=== PATIENT | female | born 1960 | race African-American/Black ===

== ENCOUNTER → 2016-06-20 | Outpatient (CLI) | payer OTHER ==
[2016-06-20 14:07] LABS: ABSOLUTE EOSINOPHILS # (AUTO) 0.1 10^3/uL (0.0-0.6); ABSOLUTE LYMPHOCYTES (AUTO) 2.3 10^3/uL (0.5-4.7); ABSOLUTE MONOCYTES (AUTO) 0.5 10^3/uL (0.1-1.4); ABSOLUTE NEUT (AUTO) 2.4 10^3/uL (1.7-8.2); BASOPHILS % (AUTO) 0.8 % (0-2); EOSINOPHILS % (AUTO) 2.1 % (0-6); HEMATOCRIT 39.9 % (36.0-47.0); HEMOGLOBIN 12.4 g/dL (12.0-15.5); HGB HCT DIFFERENCE -2.7; LYMPHOCYTES % (AUTO) 43.1 % (13-45); MEAN CORPUSCULAR HGB CONC 31.1 g/dL (32.0-36.0); MEAN CORPUSCULAR VOLUME 93 fl (80-97); MONOCYTES % (AUTO) 9.4 % (3-13); RED BLOOD COUNT 4.28 10^6/uL (3.72-5.28); RED CELL DISTRIBUTION WIDTH 13.9 % (11.5-14.0); SEGMENTED NEUTROPHILS % (AUTO) 44.6 % (42-78); WHITE BLOOD COUNT 5.3 10^3/uL (4.0-10.5)
[2016-06-20 14:47] LABS: DIRECT LDL 120 mg/dL (<100); Direct HDL 46 mg/dL (>40); TRIGLYCERIDES 124 mg/dL (<150)
[2016-06-22 12:18] LABS: ALANINE AMINOTRANSFERASE 52 U/L (9-52); ALBUMIN 4.4 g/dL (3.5-5.0); ALKALINE PHOSPHATASE 94 U/L (38-126); ANION GAP 10 (5-19); ASPARTATE AMINO TRANSFERASE 28 U/L (14-36); BILIRUBIN,TOTAL 0.7 mg/dL (0.2-1.3); BLOOD UREA NITROGEN 23 mg/dL (7-20); CALCIUM 10.2 mg/dL (8.4-10.2); CARBON DIOXIDE 32 mmol/L (22-30); CHLORIDE 102 mmol/L (98-107); CREATININE RESULT 0.95 mg/dL (0.52-1.25); GLUCOSE 91 mg/dL (75-110); POTASSIUM 4.2 mmol/L (3.6-5.0); SODIUM 143.6 mmol/L (137-145); TOTAL PROTEIN 7.8 g/dL (6.3-8.2)
== END ==
LOC: OD 12:19
DX: R73.03 Prediabetes (principal); I10 Essential (primary) hypertension
CPT/HCPCS: 36415; 80053; 80061; 83036; 84443; 85025

== ENCOUNTER 2016-07-03 08:14 | Day surgery (SDC) | payer MEDICAID, OTHER ==
[~2016-07-03 08:14] MED LIST: PROPOFOL INJ 200 MG/20 ML VIAL IV ONE
[2016-07-03] MEDS ORDERED: ONDANSETRON HCL INJ/PF 4 MG/2 ML SDV ONE (09:07)
[2016-07-03 09:58] VITALS: BP 144/86
--- NOTE | 2016-07-03 13:05 | Operative Report ---
Operative Report DATE OF SURGERY: 07/03/16 Operative Report: The risks, benefits and alternatives of the procedure including risks of bleeding, perforation requiring surgery are explained to the patient detail and informed consent is obtained. Patient is placed in a left lateral decubital position and brought back to the endoscopy suite. Timeout is called. Propofol medication is administered. A rectal examination was done which did not reveal any masses, tears or fissures. An Olympus video scope was inserted into the patient's rectum. Keeping the lumen in sight at all times the scope was then gradually advanced all the way to the cecum. The cecum was identified by the usual anatomical landmarks of the ileocecal valve as well as the appendiceal office. Photodocumentation was obtained. Prep is good. The scope was then sequentially pulled back via the various segments of the colon including the ascending colon, hepatic flexure, transverse colon, splenic flexure, descending colon and finally into the rectosigmoid portion of the colon. Retroflexion maneuvers performed. PREOPERATIVE DIAGNOSIS: Colorectal cancer screening. POSTOPERATIVE DIAGNOSIS: Mild right-sided inflammation status post biopsy. Internal hemorrhoids. No evidence of diverticulosis, AVMs, or other polyps. OPERATION: Colonoscopy with biopsy SURGEON: JOYCELYN THIBODEAUX ANESTHESIA: LMAC TISSUE REMOVED OR ALTERED: Right-sided colon specimens obtained rule out microscopic, collagenous, lymphocytic colitis. COMPLICATIONS: None. ESTIMATED BLOOD LOSS: none. INTRAOPERATIVE FINDINGS: As described above. PROCEDURE: She tolerated the procedure well. No immediate postprocedure complications are noted. Patient is discharged in good condition. Discharge date 07/03/2016. Discharge diet: Regular. Discharge activity: Regular. Patient does have a 2-3 week follow-up to discuss findings. If biopsies are negative she can have a 10 year surveillance. She is instructed to call the office or proceed to the emergency room should there be any further problems or questions. We'll await on biopsies.
== END 2016-07-03 10:00 | disposition home or self-care (01) ==
LOC: END 08:14
PROVIDERS: ATTEND Internal Medicine Gastroenterology
PROC: 0DBF8ZX Excision of Right Large Intestine, Via Natural or Artificial Opening Endoscopic, Diagnostic (ICD-10-PCS; principal; 2016-07-03 09:30)
DX: Z12.11 Encounter for screening for malignant neoplasm of colon (principal); K52.9 Noninfective gastroenteritis and colitis, unspecified; K64.8 Other hemorrhoids; I10 Essential (primary) hypertension; E66.9 Obesity, unspecified; R73.03 Prediabetes; G47.33 Obstructive sleep apnea (adult) (pediatric); Z79.899 Other long term (current) drug therapy; Z86.73 Personal history of transient ischemic attack (TIA), and cerebral infarction without residual deficits; Z79.82 Long term (current) use of aspirin; Z79.84 Long term (current) use of oral hypoglycemic drugs; Z88.0 Allergy status to penicillin; Z88.6 Allergy status to analgesic agent
CPT/HCPCS: 45380; 82962; 88305 ×2; J2405; J2704; 810

== ENCOUNTER → 2016-09-20 | Outpatient (CLI) | payer OTHER ==
[2016-09-20 15:30] LABS: ANION GAP 13 (5-19); BLOOD UREA NITROGEN 18 mg/dL (7-20); CALCIUM 10.1 mg/dL (8.4-10.2); CARBON DIOXIDE 31 mmol/L (22-30); CHLORIDE 101 mmol/L (98-107); CREATININE RESULT 0.92 mg/dL (0.52-1.25); GLUCOSE 108 mg/dL (75-110); SODIUM 144.5 mmol/L (137-145)
== END ==
LOC: CCC 14:32
DX: I10 Essential (primary) hypertension (principal); Z79.899 Other long term (current) drug therapy
CPT/HCPCS: 36415; 80048